=== PATIENT | female | born 1970 | race African-American/Black ===

== ENCOUNTER 2021-05-06 21:54 | Emergency (ER) | payer SELFPAY ==
[~2021-05-06] VITALS: Ht 165.1 cm; Wt 64.0 kg
[2021-05-06 22:09] VITALS: BP 108/65
== END 2021-05-07 03:30 | disposition left against medical advice (07) ==
LOC: ER 21:54
DX: Z53.21 Procedure and treatment not carried out due to patient leaving prior to being seen by health care provider (principal)

== ENCOUNTER 2021-11-12 13:21 | Emergency (ER) | payer MEDICAID ==
[~2021-11-12] VITALS: Ht 170.2 cm; Wt 70.0 kg
[2021-11-12] MEDS ORDERED: FAMOTIDINE 20MG/2ML VIAL IV STA (13:37)
[2021-11-12] MEDS ORDERED: SODIUM CHLORIDE 0.9% 1,000 ML IV ONE (13:45)
[2021-11-12] MEDS ORDERED: MECLIZINE 25MG TABLET PO ONE (14:00)
[2021-11-12 14:08] LABS: BASOPHILS % 1.2 % (0.0-2.0); EOSINOPHILS % 2.1 % (0.0-5.0); HEMATOCRIT. 38.8 % (36.0-48.0); HEMOGLOBIN. 13.1 g/dL (12.0-16.0); LYMPHOCYTES % 36.4 % (20.0-50.0); MEAN CORPUSCULAR HEMOGLOBIN 30.8 pg (28.0-32.0); MEAN CORPUSCULAR VOLUME 91.3 fL (81.0-99.0); MEAN PLATELET VOLUME 8.7 fl (7.4-10.4); NEUTROPHILS % 52.3 % (40.0-76.0); PLATELET 118 x1000/uL (130-400); RED BLOOD CELL COUNT 4.24 mill/uL (4.2-5.4); RED CELL DISTRIBUTION WIDTH 15.8 % (11.6-14.6)
[2021-11-12 14:15] LABS: CHLORIDE 106 mEq/L (98-107)
[2021-11-12] MEDS ORDERED: HYDROCODONE/ACETAMINOPHEN 5/325MG TABLET PO ONE (15:15)
[2021-11-12] MEDS ORDERED: MECL-159 MT (15:21)
[2021-11-12 15:46] VITALS: BP 135/85
== END 2021-11-12 16:35 | disposition home or self-care (01) ==
LOC: ER 13:21
DX: R51.9 Headache, unspecified (principal); R42 Dizziness and giddiness
CPT/HCPCS: 36415; 70450; 80053; 83690; 85025; 96361; 96374; 99284; J3490; J7030; J8597

== ENCOUNTER 2022-03-06 11:38 | Emergency (ER) | payer MEDICAID, OTHER ==
[~2022-03-06] VITALS: Ht 167.6 cm; Wt 68.0 kg
[~2022-03-06 11:38] MED LIST: MECL-159 MT
[2022-03-06 12:05] LABS: BASOPHILS % 1.6 % (0.0-2.0); EOSINOPHILS % 0.3 % (0.0-5.0); HEMATOCRIT. 46.7 % (36.0-48.0); HEMOGLOBIN. 15.4 g/dL (12.0-16.0); LYMPHOCYTES % 53.1 % (20.0-50.0); MEAN CORPUSCULAR HEMOGLOBIN 30.3 pg (28.0-32.0); MEAN CORPUSCULAR VOLUME 92.2 fL (81.0-99.0); MEAN PLATELET VOLUME 8.1 fl (7.4-10.4); MONOCYTES % 7.6 % (2.0-8.0); NEUTROPHILS % 37.4 % (40.0-76.0); PLATELET 144 x1000/uL (130-400); RED BLOOD CELL COUNT 5.07 mill/uL (4.2-5.4); RED CELL DISTRIBUTION WIDTH 16.9 % (11.6-14.6)
[2022-03-06 12:11] LABS: CHLORIDE 99 mEq/L (98-107)
[2022-03-06] MEDS ORDERED: ALBUTEROL (0.083%) 2.5MG/3ML NEB HHN STA (12:42)
[2022-03-06] MEDS ORDERED: METHYLPREDNISOLONE SOD SUCC 125 MG/2 ML VIAL IV STA (12:42)
[2022-03-06] MEDS ORDERED: IPRATROPIUM BROMIDE (0.02%) 0.5MG/2.5ML NEB HHN STA (12:42)
[2022-03-06] MEDS ORDERED: ONDANSETRON HCL 4MG/2ML INJ IV ONE (13:45)
[2022-03-06] MEDS ORDERED: IPRATROPIUM BROMIDE (0.02%) 0.5MG/2.5ML NEB ONE (14:40)
[2022-03-06] MEDS ORDERED: MORPHINE SULFATE 2 MG/ML CPJ (NOT FOR IM USE) IV ONE (15:00)
[2022-03-06] MEDS ORDERED: ONDA4TAB11 PO (16:26)
[2022-03-06] MEDS ORDERED: P50 MT (16:29)
[2022-03-06 17:45] VITALS: BP 130/53
== END 2022-03-06 17:49 | disposition home or self-care (01) ==
LOC: ER 11:38
DX: J98.01 Acute bronchospasm (principal); J06.9 Acute upper respiratory infection, unspecified; R11.10 Vomiting, unspecified; E78.5 Hyperlipidemia, unspecified; Z87.891 Personal history of nicotine dependence
CPT/HCPCS: 36415; 71045; 76604; 80053; 85025; 93005; 93880; 94640; 96374; 96375; 99285; J2270; J2405; J2930; Z7610